=== PATIENT | male | born 1970 | race Caucasian/White ===

== ENCOUNTER → 2020-12-19 | Outpatient (CLI) | payer BC ==
--- NOTE | 2020-12-19 12:44 | Diagnostic Imaging Report ---
PROCEDURE: CT urinary tract, rule out kidney stone. TECHNIQUE: Multiple contiguous axial images were obtained through the abdomen and pelvis without the use of intravenous contrast. Auto Exposure Controls were utilized during the CT exam to meet ALARA standards for radiation dose reduction. INDICATION: Hematuria. COMPARISON: No prior studies are available for comparison. FINDINGS: Imaging through the lung bases does show an approximately 4 mm pulmonary micronodule in the posterolateral left lower lobe. This is indeterminate. No discrete liver mass is identified. The gallbladder is unremarkable. There is no biliary ductal dilatation. The pancreas and spleen are unremarkable. No adrenal mass is identified. There are numerous low-attenuation lesions involving the bilateral kidneys with the largest in the upper pole of the left kidney measuring 4.5 cm. There is an approximately 2 mm nonobstructing calculus in the lower pole of the right kidney. No ureteral calculus or hydronephrosis is identified. The aorta is nonaneurysmal. The bowel loops are of normal caliber. The appendix is unremarkable. There is no obstruction. There is some diverticulosis of the sigmoid but no evidence of acute diverticulitis. The bladder and prostate are unremarkable. There is a small fat-containing umbilical hernia. IMPRESSION: 1. Bilateral renal cysts. 2. Tiny nonobstructing right renal calculus. No definite ureteral calculus or hydronephrosis is seen. 3. Uncomplicated diverticulosis. 4. Fat-containing umbilical hernia. Dictated by: Dictated on workstation # [id number]
== END ==
LOC: RAD FS 11:31
PROVIDERS: ATTEND Allergy & Immunology
DX: N28.1 Cyst of kidney, acquired (principal); K57.30 Diverticulosis of large intestine without perforation or abscess without bleeding; K42.9 Umbilical hernia without obstruction or gangrene
CPT/HCPCS: 74176